=== PATIENT | male | born 1990 | race African-American/Black ===

== ENCOUNTER 2016-09-12 12:28 | Emergency (ER) | payer OTHER ==
[~2016-09-12] VITALS: Ht 175.3 cm; Wt 70.0 kg
[~2016-09-12 12:28] MED LIST: NAPROSYN500 MG PO; ULTRAM50 MG OR
[2016-09-12] MEDS ORDERED: NAPROSYN500 MG PO (14:23)
[2016-09-12 14:40] VITALS: BP 129/77
== END 2016-09-12 14:40 | disposition home or self-care (01) | DRG 552 ==
LOC: ED 12:28
DX: S16.1XXA Strain of muscle, fascia and tendon at neck level, initial encounter (principal); S43.402A Unspecified sprain of left shoulder joint, initial encounter; V44.5XXA Car driver injured in collision with heavy transport vehicle or bus in traffic accident, initial encounter; Y92.413 State road as the place of occurrence of the external cause

== ENCOUNTER 2016-10-15 17:10 | Emergency (ER) | payer OTHER ==
[~2016-10-15] VITALS: Ht 175.3 cm; Wt 70.0 kg
[2016-10-15 18:53] VITALS: BP 135/81
== END 2016-10-15 18:53 | disposition home or self-care (01) | DRG 951 ==
LOC: ED 17:10
DX: Z04.8 Encounter for examination and observation for other specified reasons (principal); F17.200 Nicotine dependence, unspecified, uncomplicated